=== PATIENT | female | born 1960 | race Caucasian/White ===

== ENCOUNTER → 2020-09-20 12:53 | Outpatient (CLI) | payer OTHER, SELFPAY ==
[2020-09-20 14:02] LABS: EXAGEN MAILED SPECIMEN
[2020-09-20 15:22] LABS: Absolute Lymphocyte Count 1.57 X10^3/uL (0.83-4.51); Absolute Neutrophil Count 1.6 X10^3/uL (2.0-7.7); Basophil# 0.01 X10^3/uL; Basophil% 0.3 % (0-1); Eosinophil# 0.05 X10^3/uL; Eosinophils% 1.4 % (0-5); Hematocrit 39.6 % (37-47); Hemoglobin 12.9 g/dL (12.0-15.0); Lymphocyte # 1.57 X10^3/ul (0.83-4.51); Lymphocyte % 43.6 % (19-41); Mean Corp Hgb Conc 32.6 g/dL (32-36); Mean Corpuscular Hgb 28.7 pg (27.0-32.0); Mean Platelet Vol. 11.6 fl (6.2-12.0); Monocyte# 0.37 X10^3/uL; Monocyte% 10.3 % (0-10); NRBC Flagged by Analyzer 0 % (0-5); Neutrophil % 44.4 % (47-70); Platelet Count 238 K/mm3 (150-450); RBC Distribution Width CV 12.4 % (11.6-14.6); RBC Distribution Width SD 39.7 fl (35.1-43.9); White Blood Count 3.6 K/mm3 (4.4-11.0)
[2020-09-20 15:31] LABS: Creatinine, Urine (random) < 13.00 mg/dL (NO RANGE EST.); Protein, Urine (Random) < 6.0 mg/dL (<11.9)
[2020-09-20 15:36] LABS: ALB/GLOB Ratio 1.1 RATIO (0.9-2.4); AST(SGOT) 18 U/L (15-37); Alanine Aminotransfer ALT/SGPT 24 U/L (13-56); Alkaline Phosphatase 64 U/L (45-117); Anion Gap 5 (5-15); BUN 16 mg/dL (7-18); BUN/Creat Ratio 25.6 RATIO (10-20); Chloride 106 mmol/L (98-107); Creatinine, Serum 0.63 mg/dL (0.55-1.02); EST Glomerular Filtration Rate 104 mL/min (>60); Est Glom Filt Rate - Afr Amer 126 mL/min (>60); Globulin 3.8 g/dL (2.2-4.2); Glucose 78 mg/dL (74-106); Potassium 3.9 mmol/L (3.5-5.1); Protein, Total 7.8 g/dL (6.4-8.2); Sodium Level 139 mmol/L (136-145)
== END ==
PROVIDERS: PCP Family Medicine; Referring Provider Internal Medicine Rheumatology; Visit Provider Internal Medicine Rheumatology
DX: M06.4 Inflammatory polyarthropathy (principal); M79.7 Fibromyalgia; M35.00 Sjogren syndrome, unspecified; M19.041 Primary osteoarthritis, right hand
CPT/HCPCS: 36415; 80053; 82570; 84156; 85025

== ENCOUNTER → 2020-12-09 11:49 | Outpatient (CLI) | payer OTHER, SELFPAY ==
[2020-12-09 15:03] LABS: Absolute Lymphocyte Count 1.53 X10^3/uL (0.83-4.51); Absolute Neutrophil Count 1.8 X10^3/uL (2.0-7.7); Basophil# 0.02 X10^3/uL; Basophil% 0.5 % (0-1); Eosinophil# 0.09 X10^3/uL; Eosinophils% 2.4 % (0-5); Hemoglobin 13.5 g/dL (12.0-15.0); Lymphocyte # 1.53 X10^3/ul (0.83-4.51); Mean Corp Hgb Conc 33.8 g/dL (32-36); Mean Corpuscular Volume 85.8 fL (81-99); Mean Platelet Vol. 10.6 fl (6.2-12.0); Monocyte# 0.32 X10^3/uL; Monocyte% 8.6 % (0-10); NRBC Flagged by Analyzer 0 % (0-5); Neutrophil # 1.77 X10^3/uL (2.7-7.7); Neutrophil % 47.5 % (47-70); Platelet Count 243 K/mm3 (150-450); RBC Distribution Width CV 12.5 % (11.6-14.6); RBC Distribution Width SD 39.1 fl (35.1-43.9); Red Blood Count 4.66 M/mm3 (4.2-5.4); White Blood Count 3.7 K/mm3 (4.4-11.0)
[2020-12-09 15:27] LABS: ALB/GLOB Ratio 1.1 RATIO (0.9-2.4); AST(SGOT) 18 U/L (15-37); Alanine Aminotransfer ALT/SGPT 27 U/L (13-56); Albumin, Serum 4.2 g/dL (3.2-5.0); Alkaline Phosphatase 65 U/L (45-117); Anion Gap 6 (5-15); BUN 12 mg/dL (7-18); BUN/Creat Ratio 21.4 RATIO (10-20); Chloride 102 mmol/L (98-107); Creatinine, Serum 0.56 mg/dL (0.55-1.02); EST Glomerular Filtration Rate 118 mL/min (>60); Est Glom Filt Rate - Afr Amer 143 mL/min (>60); Globulin 3.7 g/dL (2.2-4.2); Glucose 59 mg/dL (74-106); Potassium 3.6 mmol/L (3.5-5.1); Protein, Total 7.9 g/dL (6.4-8.2); Sodium Level 137 mmol/L (136-145)
== END ==
PROVIDERS: PCP Family Medicine; Referring Provider Internal Medicine Rheumatology; Visit Provider Internal Medicine Rheumatology
DX: M06.4 Inflammatory polyarthropathy (principal); Z79.899 Other long term (current) drug therapy; M79.7 Fibromyalgia; M35.00 Sjogren syndrome, unspecified; M19.041 Primary osteoarthritis, right hand
CPT/HCPCS: 36415; 80053; 85025

== ENCOUNTER → 2021-03-10 12:04 | Outpatient (CLI) | payer OTHER, SELFPAY ==
[2021-03-10 14:55] LABS: Absolute Lymphocyte Count 1.08 X10^3/uL (0.83-4.51); Absolute Neutrophil Count 2.4 X10^3/uL (2.0-7.7); Basophil# 0.02 X10^3/uL; Basophil% 0.5 % (0-1); Eosinophil# 0.05 X10^3/uL; Eosinophils% 1.3 % (0-5); Hematocrit 39.7 % (37-47); Hemoglobin 13.3 g/dL (12.0-15.0); Lymphocyte # 1.08 X10^3/ul (0.83-4.51); Lymphocyte % 28.1 % (19-41); Mean Corp Hgb Conc 33.5 g/dL (32-36); Mean Corpuscular Hgb 28.8 pg (27.0-32.0); Mean Corpuscular Volume 85.9 fL (81-99); Mean Platelet Vol. 10.6 fl (6.2-12.0); Monocyte# 0.31 X10^3/uL; Monocyte% 8.1 % (0-10); NRBC Flagged by Analyzer 0 % (0-5); Neutrophil # 2.38 X10^3/uL (2.7-7.7); Platelet Count 240 K/mm3 (150-450); RBC Distribution Width CV 12.5 % (11.6-14.6); RBC Distribution Width SD 39.2 fl (35.1-43.9); Red Blood Count 4.62 M/mm3 (4.2-5.4); White Blood Count 3.8 K/mm3 (4.4-11.0)
[2021-03-10 15:22] LABS: ALB/GLOB Ratio 1.1 RATIO (0.9-2.4); AST(SGOT) 17 U/L (15-37); Alanine Aminotransfer ALT/SGPT 24 U/L (13-56); Alkaline Phosphatase 56 U/L (45-117); Anion Gap 7 (5-15); BUN 18 mg/dL (7-18); BUN/Creat Ratio 27.7 RATIO (10-20); Calcium,Total 9.2 mg/dL (8.5-10.1); Chloride 106 mmol/L (98-107); Creatinine, Serum 0.65 mg/dL (0.55-1.02); EST Glomerular Filtration Rate 99 mL/min (>60); Est Glom Filt Rate - Afr Amer 120 mL/min (>60); Globulin 3.8 g/dL (2.2-4.2); Glucose 75 mg/dL (74-106); Potassium 3.7 mmol/L (3.5-5.1); Protein, Total 7.8 g/dL (6.4-8.2); Sodium Level 138 mmol/L (136-145)
== END ==
PROVIDERS: PCP Family Medicine; Referring Provider Internal Medicine Rheumatology; Visit Provider Internal Medicine Rheumatology
DX: M06.4 Inflammatory polyarthropathy (principal); Z79.899 Other long term (current) drug therapy; M79.7 Fibromyalgia; M35.00 Sjogren syndrome, unspecified; M19.041 Primary osteoarthritis, right hand
CPT/HCPCS: 36415; 80053; 85025

== ENCOUNTER 2022-03-10 08:21 | Outpatient (CLI) | payer OTHER, SELFPAY ==
--- NOTE | 2022-03-10 08:23 | BI_ITS ---
MAMMOGRAPHY - BILATERAL SCREENING REASON FOR EXAM: Female, 61 years old. Routine annual screening examination. PERTINENT HISTORY: Mother with breast cancer. Aunts with breast cancer. TECHNIQUE: Digital bilateral breast tex (3D mammographic acquisition) in the CC and MLO projections. 2-D mediolateral oblique (MLO) and craniocaudad (CC) views of both breasts were obtained. CAD: Full Field Digital Mammography with Computer Added Detection was performed. COMPARISON: Comparison is made with prior outside examination dated 01/17/2021. FINDINGS: Breast Composition: There are scattered areas of fibroglandular density. There are no dominant masses or suspicious calcifications. No other significant abnormalities are identified. There has been no significant change since the prior study. BI/SCRN MAMM (CAD)W/TEX BILAT IMPRESSION: Stable bilateral screening mammogram. Yearly follow-up mammogram recommended. (A) ASSESSMENT CATEGORY: BIRADS Category 1: Negative. A letter regarding these results will be sent to the patient by the facility within 30 days. Approximately 10% of breast cancers are not detected by mammography. A normal mammogram should not delay biopsy of a clinically suspicious abnormality. [id number] Electronically Signed: Abdelrahman Crespo MD at 9:13 EST ,
== END 2022-03-10 23:59 | disposition home or self-care (01) ==
LOC: OPBI 08:22
PROVIDERS: PCP Family Medicine; Referring Provider Nurse Practitioner Women's Health; Visit Provider Nurse Practitioner Women's Health
DX: Z12.31 Encounter for screening mammogram for malignant neoplasm of breast (principal); Z80.3 Family history of malignant neoplasm of breast
CPT/HCPCS: 77063; 77067

== ENCOUNTER → 2022-05-26 | Outpatient (CLI) | payer OTHER, SELFPAY ==
[2022-05-26 16:22] LABS: NATERA MAILED SPECIMEN
[2022-06-01 14:51] LABS: HPV APTIMA, High Risk Negative (Negative)
== END | disposition home or self-care (01) ==
PROVIDERS: PCP Family Medicine; Referring Provider Nurse Practitioner Women's Health; Visit Provider Nurse Practitioner Women's Health
DX: Z01.419 Encounter for gynecological examination (general) (routine) without abnormal findings (principal); Z80.3 Family history of malignant neoplasm of breast
CPT/HCPCS: 36415; 87624; 88175; G0145

== ENCOUNTER → 2023-08-04 | Outpatient (CLI) | payer OTHER, SELFPAY ==
--- NOTE | 2023-08-04 12:30 | BI_ITS ---
MAMMOGRAPHY - BILATERAL SCREENING REASON FOR EXAM: Female, 62 years old. Routine annual screening examination. PERTINENT HISTORY: Mother with breast cancer. Aunts with breast cancer. TECHNIQUE: Digital bilateral breast tex (3D mammographic acquisition) in the CC and MLO projections. 2-D mediolateral oblique (MLO) and craniocaudad (CC) views of both breasts were obtained. CAD: Full Field Digital Mammography with Computer Added Detection was performed. COMPARISON: Comparison is made with prior study dated March 10, 2022. FINDINGS: Breast Composition: There are scattered areas of fibroglandular density. There are no dominant masses or suspicious calcifications. No other significant abnormalities are identified. There has been no significant change since the prior study. BI/SCRN MAMM (CAD)W/TEX BILAT IMPRESSION: Stable bilateral screening mammogram. Yearly follow-up mammogram recommended. (A) ASSESSMENT CATEGORY: BIRADS Category 1: Negative. A letter regarding these results will be sent to the patient by the facility within 30 days. Approximately 10% of breast cancers are not detected by mammography. A normal mammogram should not delay biopsy of a clinically suspicious abnormality. [id number] Electronically Signed: Abdelrahman Crespo MD at 13:44 EDT ,
== END | disposition home or self-care (01) ==
LOC: OPBI 12:30
PROVIDERS: PCP Family Medicine; Referring Provider Nurse Practitioner Women's Health; Visit Provider Nurse Practitioner Women's Health
DX: Z12.31 Encounter for screening mammogram for malignant neoplasm of breast (principal); Z80.3 Family history of malignant neoplasm of breast
CPT/HCPCS: 77063; 77067

== ENCOUNTER → 2024-08-15 | Outpatient (CLI) | payer OTHER, SELFPAY ==
--- NOTE | 2024-08-15 10:48 | BI_ITS ---
EXAM: SCRN MAMM (CAD)W/TEX BILAT DATE: 08/15/2024 CLINICAL HISTORY: F, Age 63 y/o , BREAST CANCER SCREENING Mother with breast cancer. Aunts with breast cancer. BREAST CANCER RISK ASSESSMENT: Not assessed. TECHNIQUE: Bilateral screening digital breast tomosynthesis with 2D and 3D images. Computer aided detection. COMPARISON: Prior exam(s) dated August 04, 2023.. FINDINGS: TISSUE DENSITY: The breast tissue is composed of scattered area of fibroglandular density. Bilateral Breast Mammographic Findings: No significant masses, calcifications or other abnormalities are identified. No suspicious masses, areas of developing architectural distortion, or suspicious calcifications. There has been no significant interval change. BI/SCRN MAMM (CAD)W/TEX BILAT IMPRESSION: OVERALL FINAL ASSESSMENT: BIRADS 1 NEGATIVE RECOMMENDATION: Routine annual follow-up in 1 Year A letter with findings and recommendations will be mailed to the patient. Reading Location: [place] [address]
== END | disposition home or self-care (01) ==
LOC: OPBI 10:47
PROVIDERS: PCP Family Medicine; Referring Provider Nurse Practitioner Women's Health; Visit Provider Nurse Practitioner Women's Health
DX: Z12.31 Encounter for screening mammogram for malignant neoplasm of breast (principal); Z80.3 Family history of malignant neoplasm of breast
CPT/HCPCS: 77063; 77067

== ENCOUNTER → 2024-10-31 | Outpatient (CLI) | payer OTHER, SELFPAY ==
[2024-10-31 09:54] LABS: Hematocrit 38.7 % (37-47); Hemoglobin 12.7 g/dL (12.0-15.0); Immature Granulocytes Count 0.000 X10^3/uL (0.0-0.0); Mean Corp Hgb Conc 32.8 g/dL (32-36); Mean Corpuscular Volume 88.6 fL (81-99); Mean Platelet Vol. 11.1 fl (6.2-12.0); NRBC Flagged by Analyzer 0 % (0-5); Platelet Count 180 K/mm3 (150-450); RBC Distribution Width CV 13.0 % (11.6-14.6); RBC Distribution Width SD 42.3 fl (35.1-43.9); Red Blood Count 4.37 M/mm3 (4.2-5.4); White Blood Count 3.6 K/mm3 (4.4-11.0)
[2024-10-31 10:46] LABS: AST(SGOT) 24 U/L (<=31); Alanine Aminotransfer ALT/SGPT 20 U/L (<=34); Albumin, Serum 4.4 g/dL (3.4-4.8); Alkaline Phosphatase 70 U/L (35-104); Anion Gap 11 (5-15); BUN 15 mg/dL (4-19); BUN/Creat Ratio 27.5 RATIO (10-20); Calcium,Total 9.2 mg/dL (7.6-11.0); Carbon Dioxide 25.3 mmol/L (21.0-32.0); Chloride 102 mmol/L (98-108); Globulin 2.7 g/dL (2.2-4.2); Glucose 89 mg/dL (70-99); Potassium 4.1 mmol/L (3.3-5.1)
== END | disposition home or self-care (01) ==
LOC: MTLAB 09:01
PROVIDERS: PCP Family Medicine; Referring Provider Internal Medicine Rheumatology; Visit Provider Internal Medicine Rheumatology
DX: M06.4 Inflammatory polyarthropathy (principal); Z79.899 Other long term (current) drug therapy; M79.7 Fibromyalgia
CPT/HCPCS: 36415; 80053; 85025

== ENCOUNTER 2024-11-14 11:56 | Day surgery (SDC) | payer OTHER, SELFPAY ==
[2024-11-14] VITALS (8 sets, daily range): BP systolic 78–123; BP diastolic 60–70; PULSE 62–87; RESP 16–18; TEMP 36.3–36.4; O2SAT 98–100; BMI 28.5
--- NOTE | 2024-11-14 12:12 | HP.PCM_ITS ---
[facility] - General General Date of Admission: 11/14/24 Date of Service: 11/14/24 Chief Complaint: Personal history of polyps [facility] Narrative CHI LÓPEZ, is a 63 F who presents today for surveillance colonoscopy. She had a colonoscopy last year. She had 7 polyps which were all adenomas removed at that time. She is not having any abdominal pain, bleeding, chest pain or shortness of breath. Only other past medical history is rheumatoid arthritis and osteoporosis. [facility] Medical History Wears glasses Post-menopausal Difficult intravenous access Non-smoker History of cardiac murmur Rheumatoid arthritis Osteoporosis Home Medications ?Medication ?Instructions ?Recorded ?Last Taken ?Type hydroxychloroquine 200 mg tablet 200 mg PO DAILY TAKE 2 ONE DAY, 05/26/22 Unknown History AND ONE THE NEXT DAY biotin 2,500 mcg capsule 2,500 mcg PO DAILY 11/10/24 Unknown History calcium phosphate-vitamin D3 600 1 tab PO DAILY Unknown History mg-125 unit tablet [id number]-[id number] 4 mg-folic acid 1 tab PO DAILY 11/10 Unknown History 200 mcg-vit K 25 mcg-lutein tablet (Centrum Minis Women 50 Plus) Allergy/AdvReac Type Severity Reaction Status Date / Time Penicillins Allergy Mild Rash Verified 11/10/24 13:22 Family History Mother Breast cancer Aunt Breast cancer Maternal Aunt- Breast cancer x2 Surgical History History of colonoscopy S/P lymph node biopsy S/P D&C (status post dilation and curettage) Social History adopted: No household members: spouse housing: house number of children: 4 current occupational status: employed current occupation: [employer]- [place] Smoking Status: Never smoker alcohol intake: current alcohol intake frequency: holidays/special occasions only substance use type: does not use seatbelt use: always do you feel safe at home: Yes 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 ROS Constitutional Constitutional: Denies fatigue, fever(s), poor appetite, weight gain or weight loss Gastrointestinal Gastrointestinal: Denies belching, bloating, change in bowel habits, change in stool character, chewing difficulty, coffee ground emesis, constipation, c ramping, diarrhea, dyspepsia, dysphagia, early satiety, excessive flatus, fecal incontinence, heartburn, hematemesis, hematochezia, hemorrhoids, loose stools, melena, nausea, odynophagia, rectal bleeding, tenesmus, vomiting or weight changes Physical Exam Const alert, oriented x3, no apparent distress and healthy appearing General Appearance: cooperative GI normal to inspection, nondistended, normoactive bowel sounds, soft to palpation, non-tender and non-distended Percussion: normal to percussion Rectal Exam: deferred Assessment & Plan Assessment/Plan (1) Encounter for screening colonoscopy: PLAN: She will undergo surveillance colonoscopy. She was explained alternatives, risk and benefits include not withstanding bleeding, infection, sepsis, perforation, need for emergent or to . She will have an ASA of 3.
[2024-11-14] MEDS: Lactated Ringers 1,000 ML 15 ML IV (12:23)
--- NOTE | 2024-11-14 12:43 | PCM.PRE.AN2 ---
ASA Classification* ASA Classification ASA Classification: 2 Assessment & Plan Anesthesia* Anesthesia Assessment Anesthesia Assessment: Discussed sedation and/or anesthesia options, risks, benefits, and alternatives with patient/parents/legal guardian/POA. Questions invited. The patient/parents/legal guardian/POA seems to understand and agrees to proceed with anesthesia plan. Reviewed the physical assessment, medical history, allergy history and patient home medications list prior to surgery/procedure/anesthetic and documented any changes. Performed airway and anesthesia risk assessments. Anesthesia Type Anesthesia Type: MAC History Source History Obtained from:: Patient and Chart Anesthesia Focused Assessment* Temperature: 97.3 F Pulse Rate: 87 Blood Pressure: 123/70 Respiratory Rate: 18 Pulse Ox: 98 Airway Assessment Mouth opens: >3 cm Mallampati Score: II Teeth Condition: Intact Neck Range of motion (ROM): Full ROM Labs Anesthesia Preop lab: CBC WBC 3.6 K/mm3 (4.4-11.0) L 10/31/24 09:06 10/31/24 RBC 4.37 M/mm3 (4.2-5.4) 10/31/24 09:06 10/31/24 Hgb 12.7 g/dL (12.0-15.0) 10/31/24 09:06 10/31/24 Hct 38.7 % (37-47) 10/31/24 09:06 10/31/24 Plt Count 180 K/mm3 (150-450) 10/31/24 09:06 10/31/24 CHEMISTRY Potassium 4.1 mmol/L (3.3-5.1) 10/31/24 09:06 10/31/24 Sodium 138 mmol/L (133-145) 10/31/24 09:06 10/31/24 BUN 15 mg/dL (4-19) 10/31/24 09:06 10/31/24 Creatinine 0.55 mg/dL (0.70-1.20) L 10/31/24 09:06 10/31/24 Glucose 89 mg/dL (70-99) 10/31/24 09:06 10/31/24 COAG Pre-Assessment Diagnosis/Proposed Procedure Planned Operative Procedure(s): COLONOSCOPY Anesthesia History Anesthesia History - processing operator: Anesthesia History - processing operator Hx Hospitalization No 11/10/24 13:31 Any Problems With Anesthesia Yes: HEIGHTENED ANXIETY POST 11/10/24 13:31 -ANESTHESIA Cholinesterase deficiency No 11/10/24 13:31 You/Your Family Experience No 11/10/24 13:31 fever (hyperthermia) with Relationship Recent Exposure to Contagious No 11/14/24 12:15 Disease Does patient have nerve No 11/10/24 13:31 stimulator Patient instructed to have device shut off --Does patient have Pacemaker No 11/14/24 12:15 or ICD? When Was Last Pacemaker Check QUESTION #4 FULL TEXT: You/Your Family Experience fever (hyperthermia) with Anesthesia Last Oral Intake Last Oral intake: Last Oral Intake NPO since 09:30 11/14/24 12:15 Meds taken in AM with sips of No 11/14/24 12:15 water? Meds patient instructed to take am of surgery PONV PONV - processing operator: PONV - processing operator Female Yes 11/10/24 13:31 HX of Motion Sickness Yes 11/10/24 13:31 HX of N/V After Surgery No 11/10/24 13:31 Non-Smoker Yes 11/10/24 13:31 Duration of Surgery greater No 11/10/24 13:31 than 60 minutes Number of Risk Factors 3 11/10/24 13:31 PONV Score Moderate Risk 11/10/24 13:31 Any additional information?: No Height & Weight Height & Weight: Anesthesia: Height & Weight Height 5 ft 3 in 11/14/24 12:15 Weight: 73 kg 11/14/24 12:15 Body Mass Index (BMI) 28.5 11/14/24 12:15 Respiratory Assessment Respiratory Assessment - processing operator: Respiratory Tract Infection Hx - processing operator Hx Respiratory Tract Infection No 11/10/24 13:31 STOP Sleep Apnea STOP Sleep Apnea - processing operator: STOP Sleep Apnea - processing operator Hx Hypertension No 11/10/24 13:31 Hx Sleep Apnea No 11/10/24 13:31 CPAP BIPAP Do you snore loudly (louder Yes 11/10/24 13:31 than talking or can be heard Do you often feel tired/ No 11/10/24 13:31 fatigued/ sleepy during daytime? Has anyone observed you stop No 11/10/24 13:31 breathing during sleep? STOP Results Negative 11/10/24 13:31 QUESTION #5 FULL TEXT : Do you snore loudly (louder than talking or can be heard through closed doors)? Tobacco Use History Tobacco Use History - processing operator: Tobacco Use History - processing operator Tobacco Use Smoking Status Never smoker 11/10/24 13:31 Hx Tobacco Use No 11/10/24 13:31 Years Smoking Packs Smoked per Day Smoking Cessation Date was within the last 15 years Hx Smoking Cessation Date Hx Smoking Cessation Counseling Hematologic Medial History Hematologic Hx - processing operator: Hematologic Medical Hx - income auditor Hx of Blood Transfusion No 11/10/24 13:31 Hx of Transfusion in last 3 No 11/10/24 13:31 Months Date of Last Transfusion (if within last 3 months) Ever experience any problems No 11/10/24 13:31 with transfusion(s)? Specify any problems Hx of Preganancy in last 3 No 11/10/24 13:31 Months Nurse Filling Out Transfusion MGRIFFITH 11/10/24 13:31 & Questions: Date: 11/10/24 11/10/24 13:31 Time: 13:34 11/10/24 13:31 Patient unable to answer at this time (ie. confused, unrespo /Reproduction History /Reproductive History - processing operator: /Reproductive Hx- processing operator Hx Now No 11/10/24 13:31 Gestational Age (in weeks): EDC: Hx Hx Para Hx Section SAB No 11/10/24 13:31 Active Medications Active Medications: Current Medications Generic Name Dose Route Start Last Admin Trade Name Freq PRN Reason Stop Dose Admin Lactated Ringer's 1,000 mls @ 15 mls/hr 11/14/24 12:30 11/14/24 12:23 IV 15 mls/hr .Q48H LYNN Administration PFSH Medical History Wears glasses Post-menopausal Difficult intravenous access Non-smoker History of cardiac murmur Rheumatoid arthritis Osteoporosis Home Medications ?Medication ?Instructions ?Recorded ?Last Taken ?Type hydroxychloroquine 200 mg tablet 200 mg PO DAILY TAKE 2 ONE DAY, 05/26/22 11/13/24 History AND ONE THE NEXT DAY biotin 2,500 mcg capsule 2,500 mcg PO DAILY 11/10/24 11/13/24 History calcium phosphate-vitamin D3 600 1 tab PO DAILY 11/10/24 11/13/24 History mg-125 unit tablet [id number]-uny-yusl 4 mg-folic acid 1 tab PO DAILY 11/10/24 11/13/24 History 200 mcg-vit K 25 mcg-lutein tablet (Centrum Minis Women 50 Plus) Allergy/AdvReac Type Severity Reaction Status Date / Time Penicillins Allergy Mild Rash Verified 11/14/24 12:14 Family History Mother Breast cancer Aunt Breast cancer Maternal Aunt- Breast cancer x2 Surgical History History of colonoscopy S/P lymph node biopsy S/P D&C (status post dilation and curettage) Social History adopted: No household members: spouse housing: house number of children: 4 current occupational status: employed 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
--- NOTE | 2024-11-14 13:00 | COLBX_PTH ---
PATIENT: CHI LÓPEZ LOC: EN U#:[id number] AGE/SX: 63/F ROOM: RE11/14/[address]: Dr. Sky Paiz DO : 1960 BED: DIS: 11/14/2024 SPEC #: [id number] RECD: 11/14/24 14:10 STATUS: JOHANA REQ #: [id number] TAMAR: 11/14/24 13:[address]: Sky Paiz DEPT: SURGICAL PATHOLOGY RECD BY: Juancho Donahue ENTERED: 11/14/24 14:35 SP TYPE: COLON BX OTHR DR: Dr. Popeye Anderson MD Tissues: A - SPLENIC FLEXURE B - Sigmoid colon biopsy C - Rectum, NOS Procedures: Surgery Specimen Level IV HEADER OPERATION: Colonoscopy with biopsy and polypectomy PRE-OP DIAGNOSIS: Encounter for screening colonoscopy TISSUE SUBMITTED: A- Splenic flexure polyp biopsy, B- Sigmoid polyp, C- Rectal polyp biopsy x1 MICROSCOPIC DIAGNOSIS A. Splenic flexure, colon, polyp, biopsy: - Mucosal lymphoid aggregate. B. Sigmoid colon, polyp, biopsy: - Mucosal prolapse. C. Rectum, polyp, biopsy: - Tubular adenoma. MICROSCOPIC DESCRIPTION Slides are reviewed. GROSS DESCRIPTION A. Received in fixative is one container labeled with the patient's name and designated Splenic flexure polyp biopsy. The specimen consists of one irregular fragment of light gimenez soft tissue that measures 0.4 x 0.4 x 0.2 cm. The specimen is totally submitted in one cassette. B. Received in fixative is one container labeled with the patient's name and designated Sigmoid polyp. The specimen consists of one irregular fragment of light gimenez soft tissue that measures 0.5 x 0.3 x 0.2 cm. The specimen is totally submitted in one cassette. C. Received in fixative is one container labeled with the patient's name and designated Rectal polyp biopsy. The specimen consists of two irregular fragments of light gimenez soft tissue that in aggregate measure 0.8 x 0.3 x 0.2 cm. The specimen is totally submitted in one cassette. 11/14/2024 CPT:10305u2
--- NOTE | 2024-11-14 13:41 | PCM.POST.ANE ---
Anesthesia: Postop Eval I Current Vital Signs Temperature: 97.6 F Pulse Rate: 80 Blood Pressure: 92/64 Respiratory Rate: 16 Pulse Ox: 100 Oxygen Delivery Method: Room Air Assessment Airway patent: Yes Spontaneous unlabored respirations: Yes Mental status: Awake and Calm nausea: No Vomiting: No Anesthesia Complication: No Fluid Hydration Crystalloid volume administer (ml): 500 Total IV fluid infused: 500 Progress Note Anesthesia document: Postop Eval 1 completed: Yes
--- NOTE | 2024-11-14 13:44 | OP.CCLET_ITS ---
11/14/2024 Popeye Anderson Re : Colonoscopy procedure for Miranda Kingmina Anderson This procedure was performed on Thursday, November 14, 2024. My impressions and recommendations are as follows: Impressions : - Two 10 mm polyps in the rectum and in the sigmoid colon, removed with a hot snare. Resected and retrieved. - Two 8 mm polyps at the recto-sigmoid colon and at the splenic flexure, removed with a cold biopsy forceps. Resected and retrieved. - Congested mucosa in the sigmoid colon. - A tattoo was seen in the sigmoid colon. The tattoo site appeared normal. Recommendations : - Discharge patient to home. - Resume previous diet. - Continue present medications. - Await pathology results. - Repeat colonoscopy. My findings are described in the full procedure note, which is enclosed. If I can be of further assistance, please feel free to contact me at . Sincerely, Sky Paiz, 11/14/2024 1:44:04 PM This report has been signed electronically.
--- NOTE | 2024-11-14 13:44 | OP.COLON_ITS ---
Patient Name: Miranda Byrnes Procedure Date: 11/14/2024 12:56 PM Date of : 1960 Age: 63 Procedure: Colonoscopy Indications: High risk colon cancer surveillance: Personal history of colonic polyps Providers: Sky Paiz DO Referring MD: Popeye Anderson Medicines: Monitored Anesthesia Care Patient Profile: This is a 63 year old female. Refer to note in patient chart for documentation of history and physical. Last Colonoscopy: 1 year ago. Complications: No immediate complications. Procedure: Pre-Anesthesia Assessment: - Prior to the procedure, a History and Physical was performed, and patient medications and allergies were reviewed. The patient is competent. The risks and benefits of the procedure and the sedation options and risks were discussed with the patient. All questions were answered and informed consent was obtained. Patient identification and proposed procedure were verified by the physician in the pre-procedure area. Mental Status Examination: alert and oriented. Airway Examination: normal oropharyngeal airway and neck mobility. Respiratory Examination: clear to auscultation. CV Examination: normal. ASA Grade Assessment: II - A patient with mild systemic disease. After reviewing the risks and benefits, the patient was deemed in satisfactory condition to undergo the procedure. The anesthesia plan was to use monitored anesthesia care (MAC). Immediately prior to administration of medications, the patient was re-assessed for adequacy to receive sedatives. The heart rate, respiratory rate, oxygen saturations, blood pressure, adequacy of pulmonary ventilation, and response to care were monitored throughout the procedure. The physical status of the patient was re-assessed after the procedure. After I obtained informed consent, the scope was passed under direct vision. Throughout the procedure, the patient's blood pressure, pulse, and oxygen saturations were monitored continuously. The Colonoscope was introduced through the anus and advanced to the cecum, identified by appendiceal orifice and ileocecal valve. The colonoscopy was performed without difficulty. The patient tolerated the procedure well. The quality of the bowel preparation was adequate. The ileocecal valve, appendiceal orifice, and rectum were photographed. Scope In: 1:08:48 PM Scope Withdrawal Time 0 hours 11 minutes 43 seconds Scope Out: 1:30:30 PM Total Procedure Duration Time 0 hours 21 minutes 42 seconds Findings: The perianal and digital rectal examinations were normal. Two sessile polyps were found in the rectum and sigmoid colon. The polyps were 10 mm in size. These polyps were removed with a hot snare. Resection and retrieval were complete. Verification of patient identification for the specimen was done. Estimated blood loss was minimal. Two sessile polyps were found in the recto-sigmoid colon and splenic flexure. The polyps were 8 mm in size. These polyps were removed with a cold biopsy forceps. Resection and retrieval were complete. Verification of patient identification for the specimen was done. Estimated blood loss was minimal. An area of mildly congested mucosa was found in the sigmoid colon. A tattoo was seen in the sigmoid colon. The tattoo site appeared normal. Impression: - Two 10 mm polyps in the rectum and in the sigmoid colon, removed with a hot snare. Resected and retrieved. - Two 8 mm polyps at the recto-sigmoid colon and at the splenic flexure, removed with a cold biopsy forceps. Resected and retrieved. - Congested mucosa in the sigmoid colon. - A tattoo was seen in the sigmoid colon. The tattoo site appeared normal. Recommendation: - Discharge patient to home. - Resume previous diet. - Continue present medications. - Await pathology results. - Repeat colonoscopy. Procedure Code(s): --- Professional --- 74435, Colonoscopy, flexible; with removal of tumor(s), polyp(s), or other lesion(s) by snare technique 24518, 59, Colonoscopy, flexible; with biopsy, single or multiple CPT copyright 2021 [employer]. All rights reserved. The codes documented in this report are preliminary and upon sqe review may be revised to meet current compliance requirements. Sky Paiz DO 11/14/2024 1:44:04 PM This report has been signed electronically. Number of Addenda: 0 Note Initiated On: 11/14/2024 12:56 PM
--- NOTE | 2024-11-14 18:07 | PCM.POSTANE2 ---
Anesthesia Postop Eval I Sum Postop Eval Completion status Anesthesia document: Postop Eval 1 completed: Yes Anesthesia Postop Eval I Summary Anesthesia Postop Eval I Summary: Anesthesia Postop Eval I: Assessment Summary Airway patent Yes 11/14/24 13:41 [email or web address] Spontaneous unlabored Yes 11/14/24 13:41 [email or web address] respirations Mental status Awake,Calm 11/14/24 13:41 [email or web address] nausea No 11/14/24 13:41 [email or web address] Vomiting No 11/14/24 13:41 [email or web address] Anesthesia Postop Eval I: Fluid Summary Crystalloid volume administer 500 11/14/24 13:41 [email or web address] (ml) Colloids volume administered ( ml) Blood Product volume administered (ml) Total IV fluid infused 500 11/14/24 13:41 [email or web address] Anesthesia Postop Eval I: Summary Notes Anesthesia Complication No 11/14/24 13:41 [email or web address] Anesthesia Complication Comment: Post-operative progress note Anesthesia: Postop Eval II Evaluation Mental status: Awake Pain Level: 0 nausea: No Vomiting: No Progress Note Post-operative progress note: Meets discharge criteria Complications Anesthesia Complication: No
== END 2024-11-14 14:19 | disposition home or self-care (01) ==
LOC: EN 11:57 → AC 11:58
PROVIDERS: PCP Family Medicine; Referring Provider Family Medicine; Visit Provider Internal Medicine Gastroenterology
PROC: 0DJD8ZZ Inspection of Lower Intestinal Tract, Via Natural or Artificial Opening Endoscopic (ICD-10-PCS; CPT 45378; principal; 2024-11-14 12:55)
DX: Z12.11 Encounter for screening for malignant neoplasm of colon (principal); K63.5 Polyp of colon; K62.1 Rectal polyp; Z86.0100 Personal history of colon polyps, unspecified; K63.89 Other specified diseases of intestine; K62.3 Rectal prolapse
CPT/HCPCS: 45385; 45380; 88305; J2405